=== PATIENT | female | born 1990 | race African-American/Black ===

== ENCOUNTER 2020-02-23 17:25 | Observation (INO) | payer MEDICAID, OTHER ==
[~2020-02-23] VITALS: Ht 157.5 cm; Wt 101.6 kg
[2020-02-23 17:45] VITALS: BP 111/73
[2020-02-23] MEDS ORDERED: InsuLIN REG 1unit/0.01ml Soln (100units/ml) SC ONE (19:15)
== END 2020-02-23 20:00 | disposition home or self-care (01) | DRG 566 ==
LOC: ER 17:25 → LDRP 18:00
PROVIDERS: ADMIT Obstetrics & Gynecology; ATTEND Obstetrics & Gynecology
DX: O24.912 Unspecified diabetes mellitus in pregnancy, second trimester (principal); E11.10 Type 2 diabetes mellitus with ketoacidosis without coma; O46.92 Antepartum hemorrhage, unspecified, second trimester; Z3A.26 26 weeks gestation of pregnancy; Z86.32 Personal history of gestational diabetes
CPT/HCPCS: 59025; 81002; 82962; 99284; G0378; J7030; 96361; 96366

== ENCOUNTER → 2022-06-19 | Emergency (ER) | payer MEDICAID ==
[~2022-06-19] VITALS: Ht 165.1 cm; Wt 97.0 kg
[2022-06-19 15:36] VITALS: BP 128/78
[2022-06-19 18:13] LABS: Basophils # (auto) 0.1 10 ^3/uL (0-0.2); Basophils % (auto) 0.8 % (0.0-2.0); Eosinophils # (auto) 0 10 ^3/uL (0-0.8); Eosinophils % (auto) 0.3 % (0.0-7.0); Hematocrit 42.5 % (36.0-46.0); Hemoglobin 14.1 g/dL (12.2-16.2); Lymphocytes # (auto) 1.9 10 ^3/uL (0.4-5.4); Lymphocytes % (auto) 21.3 % (10.0-50.0); Mean Corpuscular Hgb Conc. 33.3 g/dL (32.0-36.0); Mean Corpuscular Volume 90.2 fL (80.0-100.0); Monocytes # (auto) 0.6 10 ^3/uL (0-1.3); Monocytes % (auto) 6.5 % (0.0-12.0); Neutrophils # (auto) 6.5 10 ^3/uL (1.6-8.6); Neutrophils % (auto) 71.1 % (37.0-80.0); Nucleated Red Blood Cells % 0.1 %; Red Blood Cells 4.71 10^6/uL (4.0-5.20); Red Cell Distribution Width 13.5 % (11.8-14.3); White Blood Cell 9.1 10^3/uL (4.4-10.8)
[2022-06-19 18:29] LABS: Albumin 4.3 g/dL (3.4-5.0); BUN/Creatinine Ratio 13.9; Calcium 9.1 mg/dL (8.5-10.1); Potassium 3.6 mmol/L (3.5-5.1)
[2022-06-19 18:32] LABS: Bilirubin, Total 0.3 mg/dL (0.2-1.0); Total Protein 7.7 g/dL (6.4-8.2)
== END | disposition home or self-care (01) ==
LOC: ER 15:28
DX: O20.0 Threatened abortion (principal); Z3A.01 Less than 8 weeks gestation of pregnancy
CPT/HCPCS: 36415; 76801; 80053; 84702; 85025; 86850; 86900; 86901

== ENCOUNTER 2025-05-08 11:50 | Inpatient (IN) | payer MEDICAID ==
[~2025-05-08] VITALS: Ht 165.1 cm; Wt 84.2 kg
--- NOTE | 2025-05-08 12:12 | ED.PDOC ---
GI ASSESSMENT HPI Comments 34 y.o female presents to the ED for a chief complaint of epigastric pain that has been ongoing for a couple months, but significantly worsened over the past week now associated with nausea and vomiting. Patient reports pain presents spontaneously with no aggravating factors, is described as sharp and intense to the point that it prevents her from getting out of bed (experienced yesterday) and causing her to cry and nearly pass out while driving. Patient states pain is non radiating, knot like sensation in her epigastric region and states she is unable to keep anything down including Tylenol taken orally today. Her past medical and surgical history includes a hysterectomy/oophorectomy and lysis of adhesions. The patient also has a history of fibroids, with surgical removal occurring three to four times in her lifetime, and a history of c-sections. She reported a normal bowel movement today. The patient denies any other other symptoms. Chief Complaint: Abdominal Pain Time Seen by MD: 12:01 Primary Care Provider: OUT OF AREA Reviewed Notes: Nurses Notes, Medications, Allergies Allergies: Coded Allergies: NO KNOWN ALLERGIES (Unverified , 02/23/20) Information Source: Patient Mode of Arrival: Ambulatory Timing: Weeks (1) Duration: Since onset Vomitus: Hard Stool: Normal Severity: Moderate Recent: None Pain Location: Periumbilical Modifying Factors: Nothing Associated sign and symptoms: Nausea, Vomiting, Abdominal Pain Past Medical History PAST MEDICAL HISTORY: Denies Surgical History: , Hysterectomy Surgical History (Other): Fibroidectomy, oophorectomy, lysis of adhesions [employer] History: Uterine Fibroids, Other (Fibroidectomy, oophorectomy, lysis of adhesion) Family History Family History: Reviewed,noncontributory to illness Social History Smoker: Non-Smoker Alcohol: Denies ETOH Use Drugs: Denies Drug Use Lives In: Home Constitutional: denies: chills, diaphoresis, fatigue, fever, malaise, sweats, weakness, others EENTM: denies: blurred vision, double vision, ear bleeding, ear discharge, ear drainage, ear pain, ear ringing, eye pain, eye redness, hearing loss, mouth pain, mouth swelling, nasal discharge, nose bleeding, nose congestion, nose pain, photophobia, tearing, throat pain, throat swelling, voice changes, others Respiratory: denies: cough, hemoptysis, orthopnea, SOB at rest, shortness of breath, SOB with excertion, stridor, wheezing, others Cardiovascular: denies: chest pain, dizzy spells, diaphoresis, Dyspnea on exertion, edema, irregular heart beat, left arm pain, lightheadedness, palpitations, PND, syncope, others Gastrointestinal: reports: abdominal pain, nausea, vomiting; denies: abdomen d istended, blood streaked bowels, constipated, diarrhea, dysphagia, difficulty swallowing, hematemesis, melena, poor appetite, poor fluid intake, rectal bleeding, rectal pain, others Genitourinary: denies: abnormal vagina bleeding, burning, dyspareunia, dysuria, flank pain, frequency, hematuria, incontinence, pain, , vagina discharge, urgency, others Neurological: denies: dizziness, fainting, headache, left sided numbness, left sided weakness, numbness, paresthesia, pre-existing deficit, right sided numbness, right sided weakness, seizure, speech problems, tingling, tremors, weakness, others Musculoskeletal: denies: back pain, gout, joint pain, joint swelling, muscle pain, muscle stiffness, neck pain, others Integumetry: denies: bruises, change in color, change in hair/nails, dryness, laceration, lesions, lumps, rash, wounds, others Allergic/Immunocompromised: denies: Difficulty Healing, Frequent Infections, Hives, Itching, others Hematologic/Lymphatic: denies: anemia, blood clots, easy bleeding, easy bruising, swollen glands, others Endocrine: denies: excessive hunger, excessive sweating, excessive thirst, excessive urination, flushing, intolerance to cold, intolerance to heat, unexplained weight gain, unexplained weight loss, others Psychiatric: denies: anxiety, bipolar disorder, depression, hopeless, panic disorder, schizophrenia, sleepless, suicidal, others All Other Systems: Reviewed and Negative Physical Exam General Appearance: Mild Distress, Obese HEENT: Other (Pupils and face symmetric. Moist mucous membranes.) Neck: Full Range of Motion, Normal Inspection Respiratory: Lungs Clear, No Accessory Muscle Use, No Respiratory Distress, Normal Breath Sounds Cardiovascular: No Edema, No JVD, Regular Rate/Rhythm Breast Exam: Deferred Gastrointestinal: Epigastric, Soft, Tenderness Genitalia: Deferred Pelvic: Deferred Rectal: Deferred Extremities: Normal inspection, Normal range of motion, Non-tender, No pedal edema Neurologic: Alert (Oriented x4), Normal Affect, Normal Mood, Other (Ambulatory) Cerebellar Function: NOT DONE Reflexes: NOT DONE Skin: Dry, Normal Color, Warm Lymphatic: NOT DONE Was a procedure done? Was a procedure done?: No GI differential Dx Differential Diagnosis: Cholangitis, Cholecystitis, Gastritis/PUD, Gastroenteritis, Ischemic Bowel, Ovarian cyst/torsion, Pancreatitis, PID, Esophageal Varicies, Stress Ulcer X-Ray, Labs, Meds, VS Vital Signs Date Time Temp Pulse Resp B/P (MAP) Pulse Ox O2 Delivery O2 Flow Rate FiO2 05/08/25 11:52 97.7 74 18 135/88 100 97.7 Lab Test 05/08/25 13:59 05/08/25 12:43 Range/Units Troponin I High Sensitivity Pending < 3 L </=34 ng/L White Blood Count 4.9 4.4-10.8 10^3/uL Red Blood Count 4.26 4.0-5.20 10^6/uL Hemoglobin 13.3 12.2-16.2 g/dL Hematocrit 39.0 36.0-46.0 % Mean Corpuscular Volume 91.4 80.0-100.0 fL Mean Corpuscular Hemoglobin 31.1 28.0-32.0 pg Mean Corpuscular Hemoglobin Concent 34.0 32.0-36.0 g/dL Red Cell Distribution Width 12.9 11.8-14.3 % Platelet Count 331 140-450 10^3/uL Mean Platelet Volume 7.0 6.9-10.8 fL Neutrophils (%) (Auto) 53.7 37.0-80.0 % Lymphocytes (%) (Auto) 37.3 10.0-50.0 % Monocytes (%) (Auto) 6.4 0.0-12.0 % Eosinophils (%) (Auto) 1.5 0.0-7.0 % Basophils (%) (Auto) 1.1 0.0-2.0 % Neutrophils # (Auto) 2.6 1.6-8.6 10 ^3/uL Lymphocytes # (Auto) 1.8 0.4-5.4 10 ^3/uL Monocytes # (Auto) 0.3 0-1.3 10 ^3/uL Eosinophils # (Auto) 0.1 0-0.8 10 ^3/uL Basophils # (Auto) 0.1 0-0.2 10 ^3/uL Nucleated Red Blood Cells 0.0 % Sodium Level 139 136-145 mmol/L Potassium Level 3.8 3.5-5.1 mmol/L Chloride Level 107 98-107 mmol/L Carbon Dioxide Level 23 20-31 mmol/L Anion Gap 9 5-15 Blood Urea Nitrogen 8 L 9-23 mg/dL Creatinine 0.73 0.550-1.02 mg/dL Glomerular Filtration Rate Calc 111 >90 mL/min BUN/Creatinine Ratio 11.0 10.0-20.0 Serum Glucose 79 74-106 mg/dL Lactic Acid Level 1.7 0.4-2.0 mmol/L Calcium Level 8.7 8.7-10.4 mg/dL Total Bilirubin 0.6 0.2-1.0 mg/dL Aspartate Amino Transferase (AST) 51 H 13-40 U/L Alanine Aminotransferase (ALT) 150 H 7-40 U/L Alkaline Phosphatase 70 46-116 U/L Total Protein 6.8 5.7-8.2 g/dL Albumin 4.3 3.2-4.8 g/dL Lipase 37 12-53 U/L PROCEDURE(s): ABPL - CT AB PEL WO CON-NO ORAL OR IV REASON: upper abd pain n/v constip ORDER NUMBER(s): [id number], ACCESSION NUMBER(s): [id number] Indication: upper abd pain n/v constip Technique: CT axial images of the abdomen and pelvis are obtained without contrast. Coronal and sagittal reformats were obtained. Radiation Dose Information: CTDI volume is 8.65 mGy. Dose-length product is 442 mGy*cm Comparison: None FINDINGS: There is limited interpretation of the abdomen and pelvis without administration of intravenous contrast. The lung bases demonstrate no pleural effusion. Adrenal glands, spleen, pancreas and liver unremarkable in shape. Heterogeneous appearance of the gallbladder with pericholecystic edema Kidneys demonstrate no hydronephrosis. Nonobstructing left renal calculus measuring 3 mm. Stomach is partially distended. Small bowel loops are normal in caliber. No secondary signs for appendicitis. Multiple appendicoliths measuring up to 5 mm. No inguinal lymphadenopathy. Bladder partially distended. Small amount of free pelvic fluid. Mesenteric haziness/ stranding. No aggressive osseous process. IMPRESSION: Limited evaluation without contrast. Heterogeneous appearance of the gallbladder with pericholecystic / gallbladder wall edema, concerning for cholecystitis. Recommend abdominal ultrasound and HIDA scan to evaluate. Appendicolith up to [address] evidence for acute appendicitis. Nonobstructing left renal calculus measuring 3 mm. Small amount of free pelvic fluid. EDURE(s): ABDL - ABDOMEN LIMITED REASON: Rule out cholecystitis ORDER NUMBER(s): [id number], ACCESSION NUMBER(s): [id number] INDICATION: Rule out cholecystitis TECHNIQUE: Multiple real-time sonographic images were obtained of the right upper quadrant. COMPARISON: None FINDINGS: The liver demonstrates homogeneous echotexture without focal mass lesions. The liver measures 15.8 cm. There is no intrahepatic or extrahepatic ductal dilatation. The common duct measures 0.2 cm. The gallbladder is without evidence of stone or sludge. The gallbladder wall measures 0.7 cm and is within normal limits. The right kidney measures 11.8 cm. The right kidney is normal in contour, size, and shape. The echogenicity is normal. There is no hydronephrosis. The pancreas is not well visualized due to overlying bowel gas. IMPRESSION: Nonspecific mildly edematous and mildly thickened gallbladder wall. No stones or sludge. X-Ray, Labs, Meds, VS Comment 34-year-old female with a history of multiple prior abdominal surgeries complaining of epigastric pain, nausea and vomiting Vitals unremarkable Exam remarkable for epigastric tenderness to palpation. No tenderness to percussion. No rebound or guarding. Rhythm strip independently interpreted by me: Sinus rhythm, rate 74, no ectopy. CT abdomen and pelvis IMPRESSION: Limited evaluation without contrast. Heterogeneous appearance of the gallbladder with pericholecystic / gallbladder w all edema, concerning for cholecystitis. Recommend abdominal ultrasound and HIDA scan to evaluate. Appendicolith up to [address] evidence for acute appendicitis. Nonobstructing left renal calculus measuring 3 mm. Small amount of free pelvic fluid. Upper quadrant ultrasound IMPRESSION: Nonspecific mildly edematous and mildly thickened gallbladder wall. No stones or sludge. CBC normal. CMP remarkable for AST 51, ALT 150, lipase normal, lactate normal, troponin negative Patient treated with the following in the ED: 1 L 0.9 normal saline IV bolus, morphine 4 mg IV, Zofran 4 mg IV, Zosyn 4.5 g IV On re-evaluation, pain has improved. Vitals were stable. Plan is to admit the patient for pain and emesis control, IV antibiotics for possible early acalculous cholecystitis and GI/surgical evaluation. Time of 1ST Reevaluation: 13:00 Reevaluation 1ST: Unchanged Patient Education/Counseling: Diagnosis, Treatment, Prognosis Family Education/Counseling: No Family Present SEPSIS Sepsis Screen Date sepsis recognized/suspect: May 08, 2025 Time Sepsis recognized/suspect: 1154 Recent Procedure: No On Antibiotic Therapy: No Respiratory Rate >20: No Heart Rate >90: No Temp<36 C (96.8 F) or >38.3 C: No SBP <90 or MAP <65 mmHG: No New Acute Mental Status Change: No Is the patient on CPAP, BIPAP,: No Physician Orders Troponin-I Hs (05/08/25 15:00) Troponin-I Hs (05/08/25 18:00) Troponin-I Hs (05/09/25 00:00) Urinalysis (05/08/25 12:22) Ct Ab Pel Wo Con-No Oral Or Iv (05/08/25 12:22) Sodium Chloride 0.9% (05/08/25 12:30) Electrocardigram (05/08/25 12:22) Abdomen Limited (05/08/25 13:17) Piperacillin-Tazo 4.5gm (Zosyn 4.5gm/100 (05/08/25 13:30) Vital Signs Date Time Temp Pulse Resp B/P (MAP) Pulse Ox O2 Delivery O2 Flow Rate FiO2 05/08/25 11:52 97.7 74 18 135/88 100 97.7 Laboratory Tests Test 05/08/25 12:43 Lactic Acid Level 1.7 mmol/L (0.4-2.0) White Blood Count 4.9 10^3/uL (4.4-10.8) Departure 1 Departure Time of Disposition: 13:25 Impression: Primary Impression: Acute cholecystitis Disposition: ADMITTED INPATIENT Admit to: Med Surg Condition: Guarded Critical Care Note Critical Care Time?: No Stability Stability form required: No I personally scribed for RASHMI WINSLOW [facility] ([facility] on 05/08/25 at 12:12. Electronically submitted by Padmini Freedman ([facility]). I personally scribed for RASHMI WINSLOW [facility] ([facility]) on 05/08/25 at 12:26. Electronically submitted by Padmini Freedman ([facility]). RASHMI WINSLOW MD May 08, 2025 12:12
[2025-05-08 12:59] LABS: Hematocrit 39.0 % (36.0-46.0); Hemoglobin 13.3 g/dL (12.2-16.2); Mean Corpuscular Hemoglobin 31.1 pg (28.0-32.0); Mean Corpuscular Volume 91.4 fL (80.0-100.0); Nucleated Red Blood Cells % 0.0 %
--- NOTE | 2025-05-08 13:00 | DVH ---
Indication: upper abd pain n/v constip Technique: CT axial images of the abdomen and pelvis are obtained without contrast. Coronal and sagit selina reformats were obtained. Radiation Dose Information: CTDI volume is 8.65 mGy. Dose-length product is 442 mGy*cm Comparison: None FINDINGS: There is limited interpretation of the abdomen and pelvis without administration of intravenous contr ast. The lung bases demonstrate no pleural effusion. Adrenal glands, spleen, pancreas and liver unremarkable in shape. Heterogeneous appearance of the ga llbladder with pericholecystic edema Kidneys demonstrate no hydronephrosis. Nonobstructing left renal calculus measuring 3 mm. Stomach is partially distended. Small bowel loops are normal in caliber. No secondary signs for appendicitis. Multiple appendicoliths measuring up to 5 mm. No inguinal lymphadenopathy. Bladder partially distended. Small amount of free pelvic fluid. Mesente jan haziness/ stranding. No aggressive osseous process. IMPRESSION: Limited evaluation without contrast. Heterogeneous appearance of the gallbladder with pericholecystic / gallbladder wall edema, concerning for cholecystitis. Recommend abdominal ultrasound and HIDA scan to evaluate. Appendicolith up to [address] evidence for acute appendicitis. Nonobstructing left renal calculus measuring 3 mm. Small amount of free pelvic fluid.
[2025-05-08 13:15] LABS: Albumin 4.3 g/dL (3.2-4.8); Alkaline Phosphatase 70 U/L (46-116); Anion Gap 9 (5-15); BUN/Creatinine Ratio 11.0 (10.0-20.0); Bilirubin, Total 0.6 mg/dL (0.2-1.0); Calcium 8.7 mg/dL (8.7-10.4); Carbon Dioxide 23 mmol/L (20-31); Glucose 79 mg/dL (74-106); Lipase 37 U/L (12-53); Potassium 3.8 mmol/L (3.5-5.1); Sodium 139 mmol/L (136-145); Total Protein 6.8 g/dL (5.7-8.2)
[2025-05-08 13:28] LABS: Alanine Aminotransferase 150 U/L (7-40); Blood Urea Nitrogen 8 mg/dL (9-23); Chloride 107 mmol/L (98-107)
--- NOTE | 2025-05-08 13:58 | DVH ---
INDICATION: Rule out cholecystitis TECHNIQUE: Multiple real-time sonographic images were obtained of the right upper quadrant. COMPARISON: None FINDINGS: The liver demonstrates homogeneous echotexture without focal mass lesions. The liver measu res 15.8 cm. There is no intrahepatic or extrahepatic ductal dilatation. The common duct measures 0.2 cm. The gallbladder is without evidence of stone or sludge. The gallbladder wall measures 0.7 cm and is w ithin normal limits. The right kidney measures 11.8 cm. The right kidney is normal in contour, size, and shape. The echoge nicity is normal. There is no hydronephrosis. The pancreas is not well visualized due to overlying bowel gas. IMPRESSION: Nonspecific mildly edematous and mildly thickened gallbladder wall. No stones or sludge.
[2025-05-08] MEDS: SODIUM CHLORIDE 0.9% 2,000 ML IV ONE (14:54)
[2025-05-08] MEDS: PIPERACILLIN-TAZO 4.5GM 100 ML IV ONE (14:57)
[2025-05-08 14:58] LABS: Urine Protein, UAD Negative (Negative)
[2025-05-08 15:08] VITALS: PULSE 64; RESP 16; O2SAT 100
[2025-05-08] MEDS: ONDANSETRON HCL 4 MG/2 ML VIAL IV ONE (15:10)
[2025-05-08] MEDS: MORPHINE SULFATE 4 MG/ML SYR/VIAL IV ONE (15:11)
--- NOTE | 2025-05-08 16:56 | DVHHP2 ---
History of Present Illness Reason for Visit: Abdominal pain with nausea and vomiting History of Present Illness Weston Chapin is a 34-year-old female with past medical history of , hysterectomy, thyroidectomy, oophorectomy, and lysis of adhesions who presents to the ED with abdominal pain with nausea and vomiting x 1 month. Patient states that the pain has been ongoing for 1 month but states that the nausea has been ongoing for 2 weeks. She reports the pain 10/10 feels like knots and constant. She reports that the pain has gotten progressively worse the last 4 days which is why she is here for an evaluation. She is requesting a work letter. Patient denies any recent trauma or injury, recent sick contacts, recent travels, recent ingestion of spoiled food, chest pain, shortness of breath, fever, chills, lightheadedness, weakness, dizziness, diarrhea, or urinary symptoms. Patient reported that she had quite a bit of abdominal surgeries right after she had a and stated that her organs were healing together. Past Surgical History: , Hysterectomy, Other (Thyroidectomy, oophorectomy, and lysis of adhesions) Family History: DM, Other (Mom with diabetes and dad ) Smoke: # pack years (Vape) ALCOHOL: none Drugs: None Lives: Alone Domestic Violence: Neg Review of Systems Gastrointestinal: Nausea, Vomiting, Abdominal Pain Allergies: Coded Allergies: Ibuprofen (Verified Allergy, Unknown, 05/08/25) STATES MAKES STOMACH AND HEAD HURT Medications Current Medications Medications Dose Ordered Sig/Chelle Route Start Time Stop Time Status Last Admin Dose Admin Piperacillin Sod/ Tazobactam Sod 100 ml @ 25 mls/hr Q8HR IV 05/08/25 22:00 UNV Acetaminophen/ Hydrocodone Bitart 1 tab Q4HP PRN PO 05/08/25 16:45 UNV Ondansetron HCl 4 mg Q4HP PRN IV 05/08/25 16:45 UNV Exam Vital Signs Vital Signs Date Time Temp Pulse Resp B/P (MAP) Pulse Ox O2 Delivery O2 Flow Rate FiO2 05/08/25 16:35 62 17 133/75 05/08/25 15:08 100 Room Air* 0 21 05/08/25 15:02 98.7 98.7 General Appearance: Alert, Oriented X3, Cooperative, No acute distress HEENT: Atraumatic, PERRLA, EOMI, Mucous membr. moist/pink Respiratory: Normal air movement Cardiovascular: Regular rate, Normal S1, Normal S2 Abdominal: Soft Extremities: No clubbing, No cyanosis, No edema, Normal pulses Skin: No rashes, No breakdown, No significant lesion Neuro: Normal gait, Normal speech, Strength at 5/5 X4 ext, Normal tone, Sensation intact Psych/Mental Status: Mental status NL, Mood NL Labs/Xrays Labs Test 05/08/25 13:59 05/08/25 12:43 05/08/25 12:14 Range/Units Troponin I High Sensitivity < 3 L </=34 ng/L White Blood Count 4.9 4.4-10.8 10^3/uL Red Blood Count 4.26 4.0-5.20 10^6/uL Hemoglobin 13.3 12.2-16.2 g/dL Hematocrit 39.0 36.0-46.0 % Mean Corpuscular Volume 91.4 80.0-100.0 fL Mean Corpuscular Hemoglobin 31.1 28.0-32.0 pg Mean Corpuscular Hemoglobin Concent 34.0 32.0-36.0 g/dL Red Cell Distribution Width 12.9 11.8-14.3 % Platelet Count 331 140-450 10^3/uL Mean Platelet Volume 7.0 6.9-10.8 fL Neutrophils (%) (Auto) 53.7 37.0-80.0 % Lymphocytes (%) (Auto) 37.3 10.0-50.0 % Monocytes (%) (Auto) 6.4 0.0-12.0 % Eosinophils (%) (Auto) 1.5 0.0-7.0 % Basophils (%) (Auto) 1.1 0.0-2.0 % Neutrophils # (Auto) 2.6 1.6-8.6 10 ^3/uL Lymphocytes # (Auto) 1.8 0.4-5.4 10 ^3/uL Monocytes # (Auto) 0.3 0-1.3 10 ^3/uL Eosinophils # (Auto) 0.1 0-0.8 10 ^3/uL Basophils # (Auto) 0.1 0-0.2 10 ^3/uL Nucleated Red Blood Cells 0.0 % Sodium Level 139 136-145 mmol/L Potassium Level 3.8 3.5-5.1 mmol/L Chloride Level 107 98-107 mmol/L Carbon Dioxide Level 23 20-31 mmol/L Anion Gap 9 5-15 Blood Urea Nitrogen 8 L 9-23 mg/dL Creatinine 0.73 0.550-1.02 mg/dL Glomerular Filtration Rate Calc 111 >90 mL/min BUN/Creatinine Ratio 11.0 10.0-20.0 Serum Glucose 79 74-106 mg/dL Lactic Acid Level 1.7 0.4-2.0 mmol/L Calcium Level 8.7 8.7-10.4 mg/dL Total Bilirubin 0.6 0.2-1.0 mg/dL Aspartate Amino Transferase (AST) 51 H 13-40 U/L Alanine Aminotransferase (ALT) 150 H 7-40 U/L Alkaline Phosphatase 70 46-116 U/L Total Protein 6.8 5.7-8.2 g/dL Albumin 4.3 3.2-4.8 g/dL Lipase 37 12-53 U/L Urine Color Colorless Yellow Urine Clarity Clear Clear Urine pH 6.0 5.0-9.0 Urine Specific [place] 1.006 1.001-1.035 Urine Protein Negative Negative Urine Ketones Negative Negative Urine Blood Negative Negative /uL Urine Nitrite Negative Negative Urine Bilirubin Negative Negative Urine Urobilinogen Normal Negative mg/dL Urine Leukocyte Esterase Negative Negative /uL Urine RBC <1 0 - 4 /hpf Urine Microscopic WBC 1 0-5 /HPF Urine Squamous Epithelial Cells Few <5 /hpf Urine Bacteria None seen None Seen /hpf Urine Glucose Normal Normal mg/dL INDICATION: Rule out cholecystitis TECHNIQUE: Multiple real-time sonographic images were obtained of the right upper quadrant. COMPARISON: None FINDINGS: The liver demonstrates homogeneous echotexture without focal mass lesions. The liver measures 15.8 cm. There is no intrahepatic or extrahepatic ductal dilatation. The common duct measures 0.2 cm. The gallbladder is without evidence of stone or sludge. The gallbladder wall measures 0.7 cm and is within normal limits. The right kidney measures 11.8 cm. The right kidney is normal in contour, size, and shape. The echogenicity is normal. There is no hydronephrosis. The pancreas is not well visualized due to overlying bowel gas. IMPRESSION: Nonspecific mildly edematous and mildly thickened gallbladder wall. No stones or sludge. Indication: upper abd pain n/v constip Technique: CT axial images of the abdomen and pelvis are obtained without contrast. Coronal and sagittal reformats were obtained. Radiation Dose Information: CTDI volume is 8.65 mGy. Dose-length product is 442 mGy*cm Comparison: None FINDINGS: There is limited interpretation of the abdomen and pelvis without administration of intravenous contrast. The lung bases demonstrate no pleural effusion. Adrenal glands, spleen, pancreas and liver unremarkable in shape. Heterogeneous appearance of the gallbladder with pericholecystic edema Kidneys demonstrate no hydronephrosis. Nonobstructing left renal calculus measuring 3 mm. Stomach is partially distended. Small bowel loops are normal in caliber. No secondary signs for appendicitis. Multiple appendicoliths measuring up to 5 mm. No inguinal lymphadenopathy. Bladder partially distended. Small amount of free pelvic fluid. Mesenteric haziness/ stranding. No aggressive osseous process. IMPRESSION: Limited evaluation without contrast. Heterogeneous appearance of the gallbladder with pericholecystic / gallbladder wall edema, concerning for cholecystitis. Recommend abdominal ultrasound and HIDA scan to evaluate. Appendicolith up to [address] evidence for acute appendicitis. Nonobstructing left renal calculus measuring 3 mm. Small amount of free pelvic fluid. SEPSIS Sepsis Screen Date sepsis recognized/suspect: May 08, 2025 Time Sepsis recognized/suspect: 1154 Recent Procedure: No On Antibiotic Therapy: No Respiratory Rate >20: No Heart Rate >90: No Temp<36 C (96.8 F) or >38.3 C: No SBP <90 or MAP <65 mmHG: No New Acute Mental Status Change: No Is the patient on CPAP, BIPAP,: No Physician Orders Troponin-I Hs (05/09/25 00:00) Ct Ab Pel Wo Con-No Oral Or Iv (05/08/25 12:22) Electrocardigram (05/08/25 12:22) Abdomen Limited (05/08/25 13:17) Zosyn Extended Infusion (05/08/25 22:00) Admit (05/08/25 16:41) Allergies (05/08/25 16:41) Code Status (05/08/25 16:41) Hydrocodone-Acet 5/325mg Tab ([place] 5/32 (05/08/25 16:45) Ondansetron Hcl (Zofran) (05/08/25 16:45) Complete Blood Count (05/09/25 04:00) Comprehensive Metabolic Panel (05/09/25 04:00) Cardiac Diet-2gna,Lofat,Lochol (05/08/25 Dinner) Acetaminophen Tablet (Tylenol Tablet) (05/08/25 16:45) Morphine Sulfate Injection (05/08/25 16:45) * [employer] Consult (05/08/25 ) Drug Screen (05/08/25 16:43) Vital Signs Date Time Temp Pulse Resp B/P (MAP) Pulse Ox O2 Delivery O2 Flow Rate FiO2 05/08/25 16:35 62 17 133/75 05/08/25 15:11 64 16 145/83 05/08/25 15:08 64 16 100 Room Air* 0 21 05/08/25 15:02 98.7 64 16 145/83 (103) 100 98.7 05/08/25 11:52 97.7 74 18 135/88 100 97.7 Laboratory Tests Test 05/08/25 12:43 Lactic Acid Level 1.7 mmol/L (0.4-2.0) White Blood Count 4.9 10^3/uL (4.4-10.8) Medications Medications Dose Ordered Sig/Chelle Route Start Time Stop Time Status Last Admin Dose Admin Morphine Sulfate 4 mg ONCE ONCE IV 05/08/25 12:30 05/08/25 12:31 DC 05/08/25 15:11 4 MG Ondansetron HCl 4 mg ONCE ONCE IV 05/08/25 12:30 05/08/25 12:31 DC 05/08/25 15:10 4 MG Piperacillin Sod/ Tazobactam Sod 100 ml @ 100 mls/hr ONCE ONCE IV 05/08/25 13:30 05/08/25 14:29 DC 05/08/25 14:57 100 MLS/HR Sodium Chloride 2,000 ml @ 1,000 mls/hr Q2H ONCE IV 05/08/25 12:30 05/08/25 14:29 DC 05/08/25 14:54 1,000 MLS/HR Assessment/Plan Assessment/Plan Assessment Intractable abdominal pain with nausea and vomiting rule out cholecystitis and appendicitis Vape use Obesity Nonobstructing left renal calculus measuring 3 mm History of History of hysterectomy History of thyroidectomy History of oophorectomy History of lysis of adhesions Plan Admit to med surge Antiemetics Pain management IV antibiotics-Zosyn NS 2 L given in ED Ultrasound abdomen noted Troponin negative x2 noted EKG Lactic level CT abdomen and pelvis noted UA Lipase Troponin UDS Diet Per patient no home medications taken DVT prophylaxis-not indicated patient ambulating PUD prophylaxis-PPIs Discussed plan of care with patient and nurse Counseled patient on lifestyle modifications, diet, and exercise Educated patient on cessation of vape use [id number] Behavior change smoking greater than 10 minutes about use of other options also gave option of nicotine patch [id number] Preventive counseling healthy eating habits, physical activity, and regular checkups Plan discussed with: Patient My Orders Orders - SRINI NAVARRETE Procedure Category Date Status Time Zosyn Extended PHA 05/08/25 Transmitted Infusion 22:00 Admit ADMIT 05/08/25 Transmitted 16:41 Allergies SUMIT 05/08/25 Transmitted 16:41 Code Status CODE 05/08/25 Transmitted 16:41 Hydrocodone-Acet PHA 05/08/25 Transmitted 5/325mg Tab ([place] 16:45 Ondansetron Hcl PHA 05/08/25 Transmitted (Zofran) 16:45 Complete Blood Count LAB 05/09/25 Verified 04:00 Comprehensive LAB 05/09/25 Verified Metabolic Panel 04:00 Cardiac DIET 05/08/25 Transmitted Diet-2gna,Lofat,Lochol Dinner Acetaminophen Tablet PHA 05/08/25 Transmitted (Tylenol Tablet) 16:45 Morphine Sulfate PHA 05/08/25 Transmitted Injection 16:45 * [employer] CONS 05/08/25 Verified Consult Drug Screen LAB 05/08/25 Verified 16:43 Date of Service: May 08, 2025 Billing Provider: SRINI NAVARRETE Common Visit Codes: 39205-TTUOGNC INP/OBS CARE (HIGH) Secondary Visit Codes: 36662-XNFVOLXYBH COUNSELING IND, 15145-GFJGT CHNG SMOKING >10MIN SRINI NAVARRETE May 08, 2025 16:56
[2025-05-08 19:55] VITALS: O2SAT 100
[2025-05-08 20:49] LABS: Cannabinoid Screen, Urine Pos (NEGATIVE)
[2025-05-08 20:51] LABS: Amphetamine Screen, Urine Neg (NEGATIVE); Barbiturate Scree,Urine Neg (NEGATIVE); Benzodiazephine Screen, Urine Neg (NEGATIVE); Cocaine Screen, Urine Neg (NEGATIVE); Opiate Scree,Urine Neg (NEGATIVE); Phencyclidine Screen, Urine Neg (NEGATIVE)
[2025-05-08] MEDS: ONDANSETRON HCL 4 MG/2 ML VIAL IV PRN (21:34)
[2025-05-08] MEDS: MORPHINE SULFATE INJ 2 MG/ml SYRG IV PRN (21:34)
[2025-05-09] MEDS: HYDROcodone-ACET 5/325MG TAB PO PRN (01:23)
[2025-05-09] MEDS: PIPERACILLIN-TAZOB 3.375GM 100 ML IV SCH (06:30)
[2025-05-09 07:28] LABS: Hematocrit 38.5 % (36.0-46.0); Hemoglobin 13.3 g/dL (12.2-16.2); Mean Corpuscular Hemoglobin 31.4 pg (28.0-32.0); Mean Corpuscular Volume 91.1 fL (80.0-100.0); Nucleated Red Blood Cells % 0.1 %
[2025-05-09 07:51] LABS: Albumin 4.1 g/dL (3.2-4.8); Alkaline Phosphatase 63 U/L (46-116); Anion Gap 9 (5-15); BUN/Creatinine Ratio 6.8 (10.0-20.0); Bilirubin, Total 0.5 mg/dL (0.2-1.0); Carbon Dioxide 23 mmol/L (20-31); Glucose 94 mg/dL (74-106); Potassium 3.7 mmol/L (3.5-5.1); Sodium 140 mmol/L (136-145); Total Protein 6.3 g/dL (5.7-8.2)
[2025-05-09 07:59] LABS: Alanine Aminotransferase 125 U/L (7-40); Blood Urea Nitrogen 6 mg/dL (9-23); Calcium 8.7 mg/dL (8.7-10.4); Chloride 108 mmol/L (98-107)
[2025-05-09 09:00] VITALS: BP 127/74; PULSE 63; RESP 16; TEMP 98.2; O2SAT 99
[2025-05-09] MEDS: ACETAMINOPHEN 325 MG TAB PO PRN (12:40)
[2025-05-09 13:00] VITALS: BP 113/75; PULSE 63; RESP 22; TEMP 98.8; O2SAT 100
--- NOTE | 2025-05-09 17:09 | DVHDS2 ---
Discharge Summary Date of Admission May 08, 2025 at 16:41 Date of Discharge: May 09, 2025 Labs/Diagnostic Data: Laboratory Results Test 05/09/25 06:53 05/08/25 13:59 05/08/25 12:43 05/08/25 12:14 White Blood Count 4.5 10^3/uL (4.4-10.8) Red Blood Count 4.23 10^6/uL (4.0-5.20) Hemoglobin 13.3 g/dL (12.2-16.2) Hematocrit 38.5 % (36.0-46.0) Mean Corpuscular Volume 91.1 fL (80.0-100.0) Mean Corpuscular Hemoglobin 31.4 pg (28.0-32.0) Mean Corpuscular Hemoglobin Concent 34.4 g/dL (32.0-36.0) Red Cell Distribution Width 12.7 % (11.8-14.3) Platelet Count 312 10^3/uL (140-450) Mean Platelet Volume 7.1 fL (6.9-10.8) Neutrophils (%) (Auto) 49.1 % (37.0-80.0) Lymphocytes (%) (Auto) 39.5 % (10.0-50.0) Monocytes (%) (Auto) 7.3 % (0.0-12.0) Eosinophils (%) (Auto) 2.9 % (0.0-7.0) Basophils (%) (Auto) 1.2 % (0.0-2.0) Neutrophils # (Auto) 2.2 10 ^3/uL (1.6-8.6) Lymphocytes # (Auto) 1.8 10 ^3/uL (0.4-5.4) Monocytes # (Auto) 0.3 10 ^3/uL (0-1.3) Eosinophils # (Auto) 0.1 10 ^3/uL (0-0.8) Basophils # (Auto) 0.1 10 ^3/uL (0-0.2) Nucleated Red Blood Cells 0.1 % Sodium Level 140 mmol/L (136-145) Potassium Level 3.7 mmol/L (3.5-5.1) Chloride Level 108 mmol/L (98-107) Carbon Dioxide Level 23 mmol/L (20-31) Anion Gap 9 (5-15) Blood Urea Nitrogen 6 mg/dL (9-23) Creatinine 0.88 mg/dL (0.550-1.02) Glomerular Filtration Rate Calc 88 mL/min (>90) BUN/Creatinine Ratio 6.8 (10.0-20.0) Serum Glucose 94 mg/dL (74-106) Calcium Level 8.7 mg/dL (8.7-10.4) Total Bilirubin 0.5 mg/dL (0.2-1.0) Aspartate Amino Transferase (AST) 37 U/L (13-40) Alanine Aminotransferase (ALT) 125 U/L (7-40) Alkaline Phosphatase 63 U/L (46-116) Total Protein 6.3 g/dL (5.7-8.2) Albumin 4.1 g/dL (3.2-4.8) Troponin I High Sensitivity < 3 ng/L (</=34) Lactic Acid Level 1.7 mmol/L (0.4-2.0) Lipase 37 U/L (12-53) Urine Color Colorless (Yellow) Urine Clarity Clear (Clear) Urine pH 6.0 (5.0-9.0) Urine Specific [place] 1.006 (1.001-1.035) Urine Protein Negative (Negative) Urine Ketones Negative (Negative) Urine Blood Negative /uL (Negative) Urine Nitrite Negative (Negative) Urine Bilirubin Negative (Negative) Urine Urobilinogen Normal mg/dL (Negative) Urine Leukocyte Esterase Negative /uL (Negative) Urine RBC <1 /hpf (0 - 4) Urine Microscopic WBC 1 /HPF (0-5) Urine Squamous Epithelial Cells Few /hpf (<5) Urine Bacteria None seen /hpf (None Seen) Urine Glucose Normal mg/dL (Normal) Urine Opiates Screen Neg (NEGATIVE) Urine Fentanyl Screen Neg (NEGATIVE) Urine Barbiturates Screen Neg (NEGATIVE) Urine Phencyclidine Screen Neg (NEGATIVE) Urine Amphetamines Screen Neg (NEGATIVE) Urine Benzodiazepines Screen Neg (NEGATIVE) Urine Cocaine Screen Neg (NEGATIVE) Urine Cannabinoids Screen Pos (NEGATIVE) Other Laboratory Tests 05/09/25 06:53 Brief Hx & Hospital Course: 34-year-old female with a no significant past medical history besides be per use and chronic marijuana use presented to the hospital with the abdominal pain nausea and vomiting, admitted for ruled out acute cholecystitis. Patient's initial abdominal pelvic CT showed evidence of gallbladder wall thickening with a pericholecystic fluid ultrasound or HIDA was recommended. Ultrasound abdomen was done which shows thickened gallbladder but no evidence of acute cholecystitis. Patient was examined by me at bedside in the presence of bedside RN patient is currently tolerating diet. She is nontender in the right upper quadrant with a no guarding no rigidity. Patient was being discharged under stable condition with a close follow up as an outpatient with the PCP and please return to ER if there is any worsening abdominal pain nausea and vomiting or any concern. Condition at Discharge: Stable Final Diagnosis/Problems List 1.Intractable abdominal pain with the nausea and vomiting suspect cyclic vomiting syndrome 2. Gallbladder wall thickening, ultrasound shows no evidence of cholelithiasis or cholecystitis, patient is currently tolerating diet 3. Chronic marijuana use 4. Right upper quadrant pain, resolved Discharge Disposition: Home SNF Discharge Will this Physician continue t: No Discharge Instruct/Medications Diet: Cardiac 2g Na,low cholest Activity: No Restrictions, As Tolerated Follow Up/Referral: Follow up with the PCP in 1-2 weeks Follow up with the General surgery as an outpatient for elective cholecystectomy if needed. Medications: Resume home medications if any. No Active Prescriptions or Reported Meds Discharge Statement: "Patient was advised to return to the ER or call 911 if any headaches, dizziness, shortness of breath, chest pain, abdominal pain, bleeding, fevers, or worsening of medical condition. Patient was counseled about treatment plan, medications, possible side effects, patientverbalized understanding. All questions were answered to the best of my ability. This discharge took greater then 30 minutes in planning, reviewing documentation, counseling the patient, and discussing with other team members." ASSESSMENT ASSESSMENT Assessment 1.Intractable abdominal pain with the nausea and vomiting suspect cyclic vomiting syndrome 2. Gallbladder wall thickening, ultrasound shows no evidence of cholelithiasis or cholecystitis, patient is currently tolerating diet 3. Chronic marijuana use 4. Right upper quadrant pain, resolved Date of Service: May 09, 2025 Billing Provider: COLBY FLORENCE MD Common Visit Codes: 67440-DRX/OBS DISCH DAY >30min COLBY FLORENCE MD May 09, 2025 17:09
[2025-05-09 17:11] VITALS: BP 134/91; PULSE 63; RESP 16; TEMP 97.9; O2SAT 100
[2025-05-09 17:13] VITALS: TEMP 36.6
== END 2025-05-09 18:00 | disposition home or self-care (01) | DRG 249 ==
LOC: ER 11:50 → OVERFLOW 16:41
DX: R11.15 Cyclical vomiting syndrome unrelated to migraine (principal); E66.9 Obesity, unspecified; N20.0 Calculus of kidney; F12.90 Cannabis use, unspecified, uncomplicated; Z90.710 Acquired absence of both cervix and uterus; Z98.891 History of uterine scar from previous surgery; Z83.3 Family history of diabetes mellitus; Z88.6 Allergy status to analgesic agent; Z68.30 Body mass index [BMI] 30.0-30.9, adult; Z79.899 Other long term (current) drug therapy
CPT/HCPCS: 36415; 74176; 76705; 80053; 80307; 81001; 83605; 83690; 84484; 85025; 96365; 96375; G0378; J2405; J2543